=== PATIENT | female | born 1960 | race Caucasian/White ===

== ENCOUNTER 2017-11-29 15:22 | Observation (INO) | payer OTHER ==
[~2017-11-29] VITALS: Ht 167.6 cm; Wt 75.4 kg
[2017-11-29] MEDS ORDERED: LEVO88TA54 PO (15:45)
[2017-11-29] MEDS ORDERED: ASPIRIN 81 MG CHEW (CHILDREN'S ASA) PO ONE (16:00)
[2017-11-29] MEDS ORDERED: NITROGLYCERIN 0.4 MG SL TABS BTL 25'S SL PRN ×2 (16:00→19:45)
[2017-11-29 16:08] LABS: BASOPHILS % (AUTO) 0 % (0-10); EOSINOPHILS # (AUTO) 0.1 10^3/uL (0.0-0.3); EOSINOPHILS % (AUTO) 1 % (0-10); HEMATOCRIT 41 % (35-52); HEMOGLOBIN 13.7 G/DL (11.5-16.0); LYMPHOCYTES # (AUTO) 1.6 X 10^3 (1.0-4.0); LYMPHOCYTES % (AUTO) 24 % (12-44); MEAN CORPUSCULAR HEMOGLOBIN 31 PG (25-34); MEAN CORPUSCULAR HGB CONC 33 G/DL (32-36); MEAN CORPUSCULAR VOLUME 94 FL (80-99); MEAN PLATELET VOLUME 10.3 FL (7.4-10.4); MONOCYTES # (AUTO) 0.5 X 10^3 (0.0-1.0); MONOCYTES % (AUTO) 7 % (0-12); NEUTROPHILS # (AUTO) 4.4 X 10^3 (1.8-7.8); NEUTROPHILS % (AUTO) 67 % (42-75); PLATELET COUNT 271 10^3/uL (130-400); RED BLOOD COUNT 4.38 10^6/uL (4.35-5.85); RED CELL DISTRIBUTION WIDTH 13.4 % (10.0-14.5); WHITE BLOOD COUNT 6.5 10^3/uL (4.3-11.0)
[2017-11-29 16:23] LABS: ALANINE AMINOTRANSFERASE 21 U/L (0-55); ALBUMIN 4.6 GM/DL (3.2-4.5); ALKALINE PHOSPHATASE 55 U/L (40-136); BILIRUBIN,TOTAL 0.6 MG/DL (0.1-1.0); BUN/CREATININE RATIO 18; CALCIUM 9.4 MG/DL (8.5-10.1); CARBON DIOXIDE 20 MMOL/L (21-32); CHLORIDE 109 MMOL/L (98-107); CREATININE SERUM 1.02 MG/DL (0.60-1.30); GFR ESTIMATED 56; GLUCOSE 114 MG/DL (70-105); MAGNESIUM 2.2 MG/DL (1.8-2.4); POTASSIUM 3.9 MMOL/L (3.6-5.0); SODIUM 141 MMOL/L (135-145); TOTAL PROTEIN 7.3 GM/DL (6.4-8.2)
[2017-11-29 16:29] LABS: MYOGLOBIN SERUM 21.6 NG/ML (10.0-92.0); PROTHROMBIN TIME PATIENT 12.9 SEC (12.2-14.7)
--- NOTE | 2017-11-29 16:38 | Diagnostic Imaging Report ---
Indication: Intermittent chest pain for 2 days. PA and lateral chest Heart size and pulmonary vascularity are normal. Lungs are clear. There are no effusions or pneumothoraces. Impression: Negative chest. Dictated by: Dictated on workstation # [id number]
[2017-11-29 17:04] LABS: FREE T4 (FREE THYROXINE) 1.02 NG/DL (0.70-1.48)
--- NOTE | 2017-11-29 17:58 | ED Chest Pain ---
General Chief Complaint: Chest Pain Stated Complaint: CP Nursing Triage Note: ARRIVED VIA AMB TO ROOM 05. COMPLAINS OF OFF AND ON CHESTPAIN FOR A COUPLE OF DAYS. 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 HAD TO LEAVE WORK TODAY DUE TO CP AND STRESS. Nursing Sepsis Screen: No Definite Risk Source: patient Exam Limitations: no limitations History of Present Illness Date Seen by Provider: November 29, 2017 Time Seen by Provider: 15:38 Initial Comments This 56-year-old woman presents to the emergency room with complaints of intermittent chest pain for the past few days. She reports it is worse with stress, particularly stress at work. She notes significant amount of increased stress in her life recently. Pain is better with rest. She notices no change with deep breathing. She notes that her brother 4 weeks ago which is part of her stress. She also states she has had some sore throat and cough that started about 4 weeks ago. She took 10 days of Keflex and thought the symptoms improved. They now seem to be worse again. Her daughter was recently diagnosed with mycoplasma pneumonia. She reports having some headaches. She had "indigestion" 2 nights ago. She had some shortness of breath earlier today but denies shortness of breath now. She has noted some mild swelling in her legs. She rates her pain as 4/10. She describes it as a "sharp ache" in the left upper chest radiating to the left shoulder, neck, and upper back. She works as a nurse at [employer]. She notes having episodes of tachycardia that have been measured up to the 120s while at work. She has a history of Neri's thyroiditis and takes irate supplement. Allergies and Home Medications Allergies Coded Allergies: Sulfa (Sulfonamide Antibiotics) (Verified Allergy, Unknown, 11/29/17) amoxicillin (Verified Allergy, Unknown, 11/29/17) clavulanic acid (Verified Allergy, Unknown, 11/29/17) Patient Home Medication List Home Medication List Reviewed: Yes Review of Systems Constitutional: no symptoms reported EENTM: No Symptoms Reported Respiratory: See HPI Cardiovascular: See HPI Gastrointestinal: No Symptoms Reported Genitourinary: No Symptoms Reported Musculoskeletal: no symptoms reported Skin: no symptoms reported Psychiatric/Neurological: See HPI Endocrine: See HPI Hematologic/Lymphatic: No Symptoms Reported Past Qldhtqe-Wktnuo-Muoqzq Hx Past Med/Social Hx: Reviewed and Corrections made Patient Social History Alcohol Use: Denies Use Recreational Drug Use: No Smoking Status: Former Smoker Recent Foreign Travel: No Contact w/Someone Who Travel: No Recent Infectious Disease Expo: No Recent Hopitalizations: No Seasonal Allergies Seasonal Allergies: No Past Medical History Surgeries: Yes Gallbladder, Orthopedic, Tubal Ligation Respiratory: No Cardiac: Yes (history of PACs) Hypertension Neurological: No : No Genitourinary: No Gastrointestinal: Yes (diaphragmatic hernia) Hiatal Hernia Musculoskeletal: Yes Arthritis, Fibromyalgia Endocrine: Yes (HASHIMOTOS) Hypothyroidsim Cancer: No Psychosocial: No Integumentary: No Family Medical History Reviewed and Corrections made Hypertension Physical Exam Vital Signs Vital Signs - First Documented 11/29/17 15:25 Temp 98.0 Pulse 98 Resp 18 B/P (MAP) 126/96 (106) Pulse Ox 98 O2 Delivery Room Air Capillary Refill : Less Than 3 Seconds General Appearance: No Apparent Distress, WD/WN HEENT: PERRL/EOMI, Normal ENT Inspection Neck: Normal Inspection Respiratory: Chest Non Tender, Lungs Clear, Normal Breath Sounds, No Accessory Muscle Use, No Respiratory Distress Cardiovascular: No Edema, No Murmur, Normal Peripheral Pulses, Tachycardia Gastrointestinal: Normal Bowel Sounds, Non Tender, Soft Extremity: Normal Inspection, No Pedal Edema, Other (slight tenderness in the right calf) Neurologic/Psychiatric: Alert, Oriented x3, No Motor/Sensory Deficits, Normal Mood/Affect, 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 Skin: Normal Color, Warm/Dry Progress/Results/Core Measures Results/Orders Lab Results Laboratory Tests Test 11/29/17 15:30 Range/Units White Blood Count 6.5 4.3-11.0 10^3/uL Red Blood Count 4.38 4.35-5.85 10^6/uL Hemoglobin 13.7 11.5-16.0 G/DL Hematocrit 41 35-52 % Mean Corpuscular Volume 94 80-99 FL Mean Corpuscular Hemoglobin 31 25-34 PG Mean Corpuscular Hemoglobin Concent 33 32-36 G/DL Red Cell Distribution Width 13.4 10.0-14.5 % Platelet Count 271 130-400 10^3/uL Mean Platelet Volume 10.3 7.4-10.4 FL Neutrophils (%) (Auto) 67 42-75 % Lymphocytes (%) (Auto) 24 12-44 % Monocytes (%) (Auto) 7 0-12 % Eosinophils (%) (Auto) 1 0-10 % Basophils (%) (Auto) 0 0-10 % Neutrophils # (Auto) 4.4 1.8-7.8 X 10^3 Lymphocytes # (Auto) 1.6 1.0-4.0 X 10^3 Monocytes # (Auto) 0.5 0.0-1.0 X 10^3 Eosinophils # (Auto) 0.1 0.0-0.3 10^3/uL Basophils # (Auto) 0.0 0.0-0.1 10^3/uL Prothrombin Time 12.9 12.2-14.7 SEC INR Comment 1.0 0.8-1.4 Activated Partial Thromboplast Time 27 24-35 SEC D-Dimer < 0.27 0.00-0.49 UG/ML Sodium Level 141 135-145 MMOL/L Potassium Level 3.9 3.6-5.0 MMOL/L Chloride Level 109 H 98-107 MMOL/L Carbon Dioxide Level 20 L 21-32 MMOL/L Anion Gap 12 5-14 MMOL/L Blood Urea Nitrogen 18 7-18 MG/DL Creatinine 1.02 0.60-1.30 MG/DL Estimat Glomerular Filtration Rate 56 BUN/Creatinine Ratio 18 Glucose Level 114 H 70-105 MG/DL Calcium Level 9.4 8.5-10.1 MG/DL Magnesium Level 2.2 1.8-2.4 MG/DL Total Bilirubin 0.6 0.1-1.0 MG/DL Aspartate Amino Transf (AST/SGOT) 18 5-34 U/L Alanine Aminotransferase (ALT/SGPT) 21 0-55 U/L Alkaline Phosphatase 55 40-136 U/L Myoglobin 21.6 10.0-92.0 NG/ML Troponin I < 0.30 <0.30 NG/ML C-Reactive Protein High Sensitivity 0.22 0.00-0.50 MG/DL Total Protein 7.3 6.4-8.2 GM/DL Albumin 4.6 H 3.2-4.5 GM/DL Thyroid Stimulating Hormone (TSH) 0.59 0.35-4.94 UIU/ML Free Thyroxine 1.02 0.70-1.48 NG/DL My Orders Orders - MARCELLE FRIAS MD Ekg Tracing (5/30/18 15:23) Cbc With Automated Diff (11/29/17 15:56) Magnesium (11/29/17 15:56) Cardiac Profile 1 (11/29/17 15:56) Comprehensive Metabolic Panel (11/29/17 15:56) Myoglobin Serum (11/29/17 15:56) Protime With Inr (11/29/17 15:56) Partial Thromboplastin Time (11/29/17 15:56) O2 (11/29/17 15:56) Monitor-Rhythm Ecg Trace Only (11/29/17 15:56) Lipid Panel (11/30/17 06:00) Aspirin Chewable Tablet (Baby Aspirin Ch (11/29/17 16:00) Nitroglycerin 0.4 Mg Btl 25's (Nitrostat (11/29/17 16:00) Saline Lock/Iv-Start (11/29/17 15:56) Fibrin Degradation Products (11/29/17 15:56) Hs C Reactive Protein (11/29/17 15:56) Chest Pa/Lat (2 View) (11/29/17 15:56) Thyroid Stimulating Hormone (11/29/17 16:10) Free T4 (Free Thyroxine) (11/29/17 16:10) Medications Given in ED Current Medications Medications Dose Ordered Sig/Kale Route Start Time Stop Time Status Last Admin Dose Admin Aspirin 324 mg ONCE ONCE PO 11/29/17 16:00 11/29/17 16:01 DC 11/29/17 16:09 324 MG Nitroglycerin 0.4 mg UD PRN SL 11/29/17 16:00 11/29/17 16:09 0.4 MG Vital Signs/I&O 11/29/17 15:25 Temp 98.0 Pulse 98 Resp 18 B/P (MAP) 126/96 (106) Pulse Ox 98 O2 Delivery Room Air Blood Pressure Mean: 106 Progress Progress Note : Progress Note Patient was given aspirin and nitroglycerin. Nitroglycerin did resolve her pain. Pain eventually rebounded when she got up to have her x-ray performed. X -ray was unremarkable. The remainder of her workup was also unremarkable. I discussed options with the patient and suggested admission for observation and stress test in the morning. Patient is agreeable to admission. Case was reviewed with Dr. Cherry and Dr. Fagan. Dr. Fagan requested patient have a PPI given in addition to aspirin. Initial ECG Impression Date: November 29, 2017 Initial ECG Impression Time: 15:29 Initial ECG Rate: 92 Initial ECG Rhythm: S.Tach Comment Sinus tachycardia with no ST elevation or depression. No abnormal intervals or axis deviation. Diagnostic Imaging Diagonstic Imaging: Xray Plain Films/CT/US/NM/MRI: chest Comments Chest x-ray viewed by me and report reviewed. See report below: NAME: TINY JAMA [facility] REC#: [id number] PT STATUS: REG ER : 1960 PHYSICIAN: MARCELLE FRIAS MD ADMIT DATE: 11/29/17/ER Signed Date of Exam: 11/29/17 CHEST PA/LAT (2 VIEW) Indication: Intermittent chest pain for 2 days. PA and lateral chest Heart size and pulmonary vascularity are normal. Lungs are clear. There are no effusions or pneumothoraces. Impression: Negative chest. Dictated by: Dictated on workstation # [id number] Dict: 11/29/17 1633 Trans: 11/29/17 1711 Interpreted by: ELSA NAM MD Electronically signed by: ELSA NAM MD 11/29/17 1711 Departure Communication (Admissions) Time/Spoke to Admitting Phy: 17:45 Dr. Cherry Time/Spoke to Consulting Phy: 17:40 Dr. Fagan Impression Primary Impression: Chest pain Qualified Codes: R07.9 - Chest pain, unspecified Disposition: ADMITTED INPATIENT Condition: Improved Admissions Decision to Admit Reason: Admit from ER (General) Decision to Admit/Date: November 29, 2017 Time/Decision to Admit Time: 17:40 Departure-Patient Inst. Referrals: JOY GRACIA DPM (PCP) Primary Care Physician MARCELLE FRIAS MD November 29, 2017 17:58
[2017-11-29 18:40] VITALS: BP 109/79
[2017-11-29] MEDS ORDERED: [UNRECOGNIZED DRUG - OTHER] PO ×2 (19:21→23:38)
[2017-11-29] MEDS ORDERED: PANTOPRAZOLE 40 MG (PROTONIX) TAB PO NR (19:39)
[2017-11-29] MEDS ORDERED: CATHETER FLUSH 10 ML SYR IV PRN (19:45)
[2017-11-29] MEDS ORDERED: ACETAMINOPHEN 325 MG TABLET/CAPLET (TYLENOL) ONE (21:57)
[2017-11-29 21:58] LABS: CREATINE KINASE 47 U/L (29-168)
[2017-11-29] MEDS: CATHETER FLUSH 10 ML SYR IV SCH (22:02)
[2017-11-29] MEDS: ACETAMINOPHEN 325 MG TABLET/CAPLET (TYLENOL) PO PRN (22:04)
[2017-11-29] MEDS ORDERED: ZINC50TA31 PO (23:40)
[2017-11-29] MEDS ORDERED: CALC-140 PO (23:42)
[2017-11-30] VITALS: BP 105/70
[2017-11-30] MEDS ORDERED: ZINC PO (01:33)
[2017-11-30] MEDS ORDERED: CALC-140 PO (01:34)
[2017-11-30] MEDS ORDERED: MAGNESIUM PO (01:36)
[2017-11-30] MEDS ORDERED: BOSWELLIA PO (01:37)
[2017-11-30] MEDS ORDERED: TUMERIC PO (01:38)
[2017-11-30] MEDS ORDERED: B-12 PO (01:38)
[2017-11-30] MEDS ORDERED: BEE POLLEN (01:39)
[2017-11-30] MEDS ORDERED: OIL OF OREGANO PO (01:40)
[2017-11-30] MEDS ORDERED: [UNRECOGNIZED DRUG - OTHER] PO (01:40)
[2017-11-30] MEDS ORDERED: VITAMIN C PO (01:42)
[2017-11-30 04:00] VITALS: BP 97/68
[2017-11-30 04:21] LABS: CHOLESTEROL 185 MG/DL (< 200); HDL CHOLESTEROL 66 MG/DL (40-60); TRIGLYCERIDES 84 MG/DL (<150); VLDL CHOLESTEROL 17 MG/DL (5-40)
[2017-11-30] MEDS ORDERED: ALPR0.25 PO (04:38)
[2017-11-30] MEDS: CATHETER FLUSH 10 ML SYR IV SCH (05:38)
[2017-11-30] MEDS ORDERED: PANTOPRAZOLE 40 MG (PROTONIX) TAB PO SCH (07:00)
--- NOTE | 2017-11-30 07:45 | Consultation-Cardiology ---
HPI-Cardiology Cardiology Consultation Date of Consultation 11/30/17 Date of Admission Time Seen by Provider: 07:41 Indication: Chest pain HPI 56 years old lady with history of hypothyroidism, has been under significant stress recently, started having recurrent episode of chest pain described as dull achiness on the left side of her chest occasionally radiating to the back and left shoulder. Mild shortness of breath on exertion, no palpitation, no syncope, occasional diaphoresis with the chest pain. Came into the emergency room and felt better initially, continue to have waxing and waning pain. EKG showed minimal nondiagnostic changes and cardiac enzymes were negative. Denied any nausea or vomiting, has been having mild cough, no fever or chills. Home Medications & Allergies Allergies: Coded Allergies: Sulfa (Sulfonamide Antibiotics) (Verified Allergy, Unknown, 11/29/17) amoxicillin (Verified Allergy, Unknown, 11/29/17) clavulanic acid (Verified Allergy, Unknown, 11/29/17) Home Medication List Reviewed: Yes KFC-Dfwgkz-Zfszjd Hx Patient Social History Employed/Student: employed Alcohol Use: Denies Use Recreational Drug Use: No Smoking Status: Former Smoker Recent Foreign Travel: No Recent Infectious Disease Expo: No Recent Hopitalizations: No Physical Abuse Screen: No Sexual Abuse: No Past Medical History Past medical history as discussed below Family Medical History Significant Family History: Hypertension Family History: Patient reports no known family medical history. Constitutional: no symptoms reported, see HPI EENTM: see HPI, no symptoms reported Respiratory: see HPI, cough; No dyspnea on exertion, No hemoptysis, No orthopnea, No phlegm, No short of breath, No stridor, No wheezing, No other Cardiovascular: see HPI, chest pain; No edema, No Hx of Intervention, No palpitations, No syncope, No vascular heart diseas, No other Gastrointestinal: no symptoms reported, see HPI Genitourinary: no symptoms reported, see HPI Musculoskeletal: no symptoms reported, see HPI Skin: no symptoms reported, see HPI Psychiatric/Neurological: No Symptoms Reported, See HPI Reviewed Test Results Reviewed Test Results Lab Laboratory Tests Test 11/29/17 15:30 11/29/17 21:33 11/30/17 03:20 Range/Units White Blood Count 6.5 4.3-11.0 10^3/uL Red Blood Count 4.38 4.35-5.85 10^6/uL Hemoglobin 13.7 11.5-16.0 G/DL Hematocrit 41 35-52 % Mean Corpuscular Volume 94 80-99 FL Mean Corpuscular Hemoglobin 31 25-34 PG Mean Corpuscular Hemoglobin Concent 33 32-36 G/DL Red Cell Distribution Width 13.4 10.0-14.5 % Platelet Count 271 130-400 10^3/uL Mean Platelet Volume 10.3 7.4-10.4 FL Neutrophils (%) (Auto) 67 42-75 % Lymphocytes (%) (Auto) 24 12-44 % Monocytes (%) (Auto) 7 0-12 % Eosinophils (%) (Auto) 1 0-10 % Basophils (%) (Auto) 0 0-10 % Neutrophils # (Auto) 4.4 1.8-7.8 X 10^3 Lymphocytes # (Auto) 1.6 1.0-4.0 X 10^3 Monocytes # (Auto) 0.5 0.0-1.0 X 10^3 Eosinophils # (Auto) 0.1 0.0-0.3 10^3/uL Basophils # (Auto) 0.0 0.0-0.1 10^3/uL Prothrombin Time 12.9 12.2-14.7 SEC INR Comment 1.0 0.8-1.4 Activated Partial Thromboplast Time 27 24-35 SEC D-Dimer < 0.27 0.00-0.49 UG/ML Sodium Level 141 135-145 MMOL/L Potassium Level 3.9 3.6-5.0 MMOL/L Chloride Level 109 H 98-107 MMOL/L Carbon Dioxide Level 20 L 21-32 MMOL/L Anion Gap 12 5-14 MMOL/L Blood Urea Nitrogen 18 7-18 MG/DL Creatinine 1.02 0.60-1.30 MG/DL Estimat Glomerular Filtration Rate 56 BUN/Creatinine Ratio 18 Glucose Level 114 H 70-105 MG/DL Calcium Level 9.4 8.5-10.1 MG/DL Magnesium Level 2.2 1.8-2.4 MG/DL Total Bilirubin 0.6 0.1-1.0 MG/DL Aspartate Amino Transf (AST/SGOT) 18 5-34 U/L Alanine Aminotransferase (ALT/SGPT) 21 0-55 U/L Alkaline Phosphatase 55 40-136 U/L Myoglobin 21.6 10.0-92.0 NG/ML Troponin I < 0.30 < 0.30 <0.30 NG/ML C-Reactive Protein High Sensitivity 0.22 0.00-0.50 MG/DL Total Protein 7.3 6.4-8.2 GM/DL Albumin 4.6 H 3.2-4.5 GM/DL Thyroid Stimulating Hormone (TSH) 0.59 0.35-4.94 UIU/ML Free Thyroxine 1.02 0.70-1.48 NG/DL Total Creatine Kinase 47 29-168 U/L Triglycerides Level 84 <150 MG/DL Cholesterol Level 185 < 200 MG/DL LDL Cholesterol Direct 107 1-129 MG/DL VLDL Cholesterol 17 5-40 MG/DL HDL Cholesterol 66 H 40-60 MG/DL Physical Exam Vital Signs Vital Signs - First Documented 11/29/17 15:25 Temp 98.0 Pulse 98 Resp 18 B/P (MAP) 126/96 (106) Pulse Ox 98 O2 Delivery Room Air Capillary Refill : Less Than 3 Seconds General Appearance: No Apparent Distress, WD/WN Eyes: Bilateral Eye Normal Inspection, Bilateral Eye PERRL, Bilateral Eye EOMI HEENT: PERRL/EOMI, TMs Normal, Normal ENT Inspection, Pharynx Normal Neck: Full Range of Motion, Normal Inspection, Non Tender, Supple, Carotid Bruit Respiratory: Chest Non Tender, Lungs Clear, Normal Breath Sounds, No Accessory Muscle Use, No Respiratory Distress Cardiovascular: Regular Rate, Rhythm, No Edema, No Gallop, No JVD, No Murmur, Normal Peripheral Pulses Gastrointestinal: Normal Bowel Sounds, No Organomegaly, No Pulsatile Mass, Non Tender, Soft Back: Normal Inspection, No CVA Tenderness, No Vertebral Tenderness Extremity: Normal Capillary Refill, Normal Inspection, Normal Range of Motion, Non Tender, No Calf Tenderness, No Pedal Edema Neurologic/Psychiatric: Alert, Oriented x3, No Motor/Sensory Deficits, Normal Mood/Affect Skin: Normal Color, Warm/Dry Lymphatic: No Adenopathy A/P-Cardiology Admission Diagnosis Anterior chest wall pain Hypothyroidism X Hypotension Hiatal hernia Assessment/Plan Chest pain nonspecific etiology, resembling angina, has been under significant stress recently. Cardec enzymes and EKG were negative. Planning to evaluate exercise stress test today. Borderline hypotension, history of hypertension. Not taking any medication. Continue to monitor blood pressure. Hypothyroidism. Followed and managed by primary care physician History of tobaccoism, stopped smoking in the remote past. History of cholecystectomy, history of hiatal hernia Clinical Quality Measures AMI/AHF: ASA po Prior to arrival: No DVT/VTE Risk/Contraindication: Risk Factor Score Per Nursin RFS Level Per Nursing on Admit: 1=Low/No VTE PPX NAYELI ANGULO MD November 30, 2017 07:44
[2017-11-30 08:15] VITALS: BP 140/61
[2017-11-30] MEDS ORDERED: ASPIRIN E.C. 81 MG (ECOTRIN) TAB PO SCH (09:00)
[2017-11-30] MEDS: ACETAMINOPHEN 325 MG TABLET/CAPLET (TYLENOL) PO PRN (09:42)
[2017-11-30 09:43] VITALS: BP 118/43
--- NOTE | 2017-11-30 10:50 | Short Stay Summary-Hospitalist ---
History of Present Illness HPI/Chief Complaint Pt is a 56yoCF with a PMH of twin's and anxiety who presented to the ER with CC of chest pain. She states that she has had intermittent chest pain for the past several days but it worsened yesterday. It started while she was getting ready for work and then subsided but recurred while she was at work ( not exertional). She felt left sided chest pain that went up her neck and down her arm. This was associated with SOB and diaphoresis. She decided to seek evaluation at that time. She also complains of a cough that started at the beginning of the month. She was treated with Keflex and steroids but had no improvement. Just a few days ago her daughter was diagnosis with mycoplasma pneumonia. She also has been going through a lot of stress lately as her brother just unexpectedly in an accident and she had been attributing her symptoms to stress. Date Seen 11/30/17 Time Seen by Provider: 10:00 Attending Physician Jhon Cherry MD PCP Di Lala Dpm Referring Physician Date of Admission November 29, 2017 at 6:12 pm Home Medications & Allergies Home Medications Reviewed patient Home Medication Reconciliation performed by pharmacy medication reconciliations electromechanical technician and/or nursing. Patients Allergies have been reviewed. Allergies Allergies Coded Allergies Sulfa (Sulfonamide Antibiotics) (Verified Allergy, Severe, lip sweling, ) amoxicillin (Verified Adverse Reaction, Unknown, 11/30/17) vomiting clavulanic acid (Verified Adverse Reaction, Unknown, 11/30/17) vomiting Past Nidekcx-Wqkhld-Frchhi Hx Past Med/Social Hx: Reviewed Nursing Past Med/Soc Hx, Reviewed and Corrections made Patient Social History Employed/Student: employed Alcohol Use: Denies Use Recreational Drug Use: No Smoking Status: Former Smoker (social smoker ~ 10cigs/month) Former Smoker, Quit: November 30, 1995 Physical Abuse Screen: No Sexual Abuse: No Recent Foreign Travel: No Contact w/other who traveled: No Recent Hopitalizations: No Recent Infectious Disease Expo: No Seasonal Allergies Seasonal Allergies: No Past Medical History Surgeries: Gallbladder, Orthopedic, Tubal Ligation Cardiac: High Cholesterol : No Gastrointestinal: Hiatal Hernia Musculoskeletal: Arthritis, Fibromyalgia Endocrine: Hypothyroidsim Psychosocial: Anxiety Adverse Reaction to Blood Hong: No Family History Reviewed and Corrections made Patient reports no known family medical history. Heart Disease (aortic stenosis- mother), Hypertension Review of Systems Constitutional: No chills; diaphoresis; No fever EENTM: No blurred vision, No double vision, No nose congestion, No throat pain Respiratory: No cough, No dyspnea on exertion; short of breath Cardiovascular: chest pain; No edema, No Hx of Intervention; palpitations Gastrointestinal: No abdominal pain, No constipation, No diarrhea, No nausea, No vomiting Genitourinary: No dysuria, No frequency Musculoskeletal: No joint pain, No muscle pain Skin: No lesions, No rash Psychiatric/Neurological: Anxiety; Denies Headache, Denies Numbness, Denies Tingling All Other Systems Reviewed Negative Unless Noted: Yes (Negative excepted noted.) Physical Exam Physical Exam Vital Signs Vital Signs - First Documented 11/29/17 15:25 Temp 98.0 Pulse 98 Resp 18 B/P (MAP) 126/96 (106) Pulse Ox 98 O2 Delivery Room Air Capillary Refill : Less Than 3 Seconds General Appearance: No Apparent Distress, WD/WN HEENT: PERRL/EOMI, Moist Mucous Membranes Neck: Non Tender, Supple Respiratory: Lungs Clear, No Respiratory Distress Cardiovascular: Regular Rate, Rhythm, No Murmur Gastrointestinal: Normal Bowel Sounds, Non Tender, Soft Extremity: Normal Capillary Refill, No Calf Tenderness Neurologic/Psychiatric: Alert, Oriented x3, Normal Mood/Affect Skin: Normal Color, Warm/Dry Results Results/Procedures Labs Laboratory Tests 11/29/17 15:30 Patient resulted labs reviewed. Imaging: Reviewed Imaging Report Imaging Date of Exam: 11/29/17 CHEST PA/LAT (2 VIEW) Indication: Intermittent chest pain for 2 days. PA and lateral chest Heart size and pulmonary vascularity are normal. Lungs are clear. There are no effusions or pneumothoraces. Impression: Negative chest. Short Stay Diagnosis Discharge Diagnosis-Short Stay Admission Diagnosis Chest Pain Final Discharge Diagnosis Chest Pain Conclusion Plan See below Diagnosis/Problems Diagnosis/Problems (1) Chest pain Status: Acute Assessment & Plan: Concerning for cardiac origin on presentation Cardiology consulted, appreciate recs Underwent nuclear stress test and is negative Deemed safe for discharge Given persistent cough and exposure to mycoplasma will start on abx for atypical pneumonia Complete z-pack at home Advised to follow up with PCP Jessica Schreiber APRN as scheduled next week Qualifiers: Qualified Codes: R07.9 - Chest pain, unspecified Clinical Quality Measures AMI/AHF: ASA po Prior to arrival: No DVT/VTE Risk/Contraindication: Risk Factor Score Per Nursin RFS Level Per Nursing on Admit: 1=Low/No VTE PPX JHON CHERRY MD November 30, 2017 10:50
[2017-11-30] MEDS ORDERED: AZITHROMYCIN 250 MG TAB (ZITHROMAX) PO ONE (11:00)
[2017-11-30] MEDS ORDERED: hydrOXYzine (ATARAX) 10 MG TAB PO PRN (11:00)
[2017-11-30 11:31] VITALS: BP 108/76
--- NOTE | 2017-11-30 12:11 | Discharge Inst-Simple/Standard ---
Discharge Inst-Standard Patient Instructions/Follow Up Plan of Care/Instructions/FU: Please continue to take your medications. Please follow up with your PCP as scheduled next week. Activity as Tolerated: Yes Discharge Diet: No Restrictions Return to The Hospital For: Chest pain, SOB, if you feel you are getting worse. JHON VELAZQUEZ MD November 30, 2017 12:11 pm
[2017-11-30] MEDS ORDERED: AZIT250T12 PO (12:18)
[2017-11-30 13:27] VITALS: BP 108/76
--- NOTE | 2017-11-30 15:02 | STRESS TEST ---
DATE OF SERVICE: 11/30/2017 EXERCISE MYOVIEW STRESS TEST REPORT REFERRING PHYSICIAN: Dr. Sharri Cherry. Baseline heart rate is 57. Baseline blood pressure 119/78. Baseline EKG is sinus rhythm with no ischemic changes. In summary, the patient was injected with 10.77 mCi of technetium-99 Myoview and the resting images were obtained. Then, she started exercising with a baseline heart rate, blood pressure and EKG mentioned above. She was able to exercise for a total of 7 minutes on standard [place]vy protocol, achieving maximum heart rate of 148 which is 87% of maximum expected heart rate. With peak exercise level, blood pressure was 165/73. EKG was showing minimal nondiagnostic changes. During recovery, heart rate and blood pressure returned to baseline. EKG returned to baseline. The resting and stress images were reviewed and compared in the short axis, horizontal long axis, and vertical long axis views. Review of the images showed breast attenuation with typical female pattern. There is mild decreased uptake at the anteroapical segment and apex with no significant reversibility. SSS is 0. TID value 1.0. On the gated images, the left ventricle appeared to be in normal size with normal contractility. Calculated ejection fraction 65%. CONCLUSION: 1. Fair exercise tolerance, a total of seven minutes of standard [place]vy protocol, total of 8.5 METS achieving 94% of maximum expected heart rate. 2. Appropriate heart rate and blood pressure response to exercise returned to baseline during recovery. 3. Breast attenuation with typical female pattern. No significant ischemia or infarction on SPECT images. 4. Normal left ventricular size with normal contractility. Calculated ejection fraction 65%. Job ID: [id number] DocumentID: [id number] Dictated Date: 11/30/2017 12:04:16 Share Holder Date: 11/30/2017 15:01:55 Dictated By: NAYELI ANGULO MD [facility]
[2017-12-01] MEDS ORDERED: AZITHROMYCIN 250 MG TAB (ZITHROMAX) PO SCH (09:00)
== END 2017-11-30 12:20 | disposition home or self-care (01) ==
LOC: EDUNIT# 15:22 → ER 15:24 → UNDOADMOB 18:12 → ICU 18:12 → UNDOADMOB 18:35 → UNDODISOB 11-30 13:27
PROVIDERS: ADMIT Family Medicine; ATTEND Family Medicine
DX: R07.9 Chest pain, unspecified (principal); R05 Cough; E03.9 Hypothyroidism, unspecified; F41.9 Anxiety disorder, unspecified; M79.7 Fibromyalgia; E78.00 Pure hypercholesterolemia, unspecified; K44.9 Diaphragmatic hernia without obstruction or gangrene; Z87.891 Personal history of nicotine dependence; Z88.1 Allergy status to other antibiotic agents; Z88.2 Allergy status to sulfonamides
CPT/HCPCS: 36415; 71046; 78452; 80053; 80061; 82550; 83735; 83874; 84439; 84443; 84484; 85025; 85379; 85610; 85730; 86141; 93005; 93017; 93041

== ENCOUNTER → 2019-02-11 | Outpatient (CLI) | payer OTHER ==
[~2019-02-11] MED LIST: ALPR0.25 PO; AZIT250T12 PO; B-12 PO; BEE POLLEN; BOSWELLIA PO; CALC-140 PO; LEVO88TA54 PO; MAGNESIUM PO; OIL OF OREGANO PO; TUMERIC PO; VITAMIN C PO; ZINC PO; ZINC50TA58 PO; [UNRECOGNIZED DRUG - OTHER] PO; [UNRECOGNIZED DRUG - OTHER] PO
--- NOTE | 2019-02-11 18:02 | Diagnostic Imaging Report ---
INDICATION: Routine screening. COMPARISON is made with prior mammograms from 01/19/2017 and 05/01/2012. TECHNIQUE: 2D and 3D bilateral screening mammography was performed with CAD. FINDINGS: Both breasts are heterogeneously dense, limiting the sensitivity of mammography. Circumscribed rounded mass outer right breast appears to be stable and suggestive of a cyst. Circumscribed nodule retroareolar left breast also appears to be stable to perhaps slightly smaller when compared with prior exam. No new mass or malignant appearing microcalcifications are seen. Axillae are unremarkable. IMPRESSION: BI-RADS category 2. No mammographic features suspicious for malignancy are identified. ACR BI-RADS Category 2: Benign findings. Result letter will be mailed to the patient. Note: At least 10% of breast cancer is not imaged by mammography. Dictated by: Dictated on workstation # [id number]
== END ==
LOC: RAD 10:00
PROVIDERS: ATTEND Nurse Practitioner
DX: Z12.31 Encounter for screening mammogram for malignant neoplasm of breast (principal)
CPT/HCPCS: 77067

== ENCOUNTER → 2019-05-07 | Outpatient (CLI) | payer OTHER ==
--- NOTE | 2019-05-07 10:44 | Diagnostic Imaging Report ---
MRI RT UPPER EXT JOINT W/O TECHNIQUE: Multiplanar, multisequence MR imaging of the right shoulder was performed without contrast. COMPARISON: None available. INDICATION: Right shoulder pain. FINDINGS: Rotator cuff: The supraspinatus has mild tendinopathy present but is intact. Infraspinatus, subscapularis, and teres minor are normal. No rotator cuff muscle atrophy or edema. Glenoid labrum: Abnormal signal within the posterosuperior labrum suggests nondisplaced tearing. No paralabral cyst. Long head of biceps: Long head of biceps is normally positioned within the bicipital groove. The intracapsular segment is intact. Bones and cartilage: Humeral head is normal in morphology without fracture or focal osseous lesion. No glenohumeral chondromalacia. 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 Soft tissues: No glenohumeral joint effusion. No MRI findings to suggest adhesive capsulitis. There is a small amount of fluid in the subacromial/subdeltoid space, suggestive of mild bursitis. IMPRESSION: 1. Probable nondisplaced tear in the superior labrum. 2. No rotator cuff tear. 3. Mild subacromial/subdeltoid bursitis. Dictated by: Dictated on workstation # [id number]
== END ==
LOC: RAD 09:16
PROVIDERS: ATTEND Nurse Practitioner Family
DX: M25.511 Pain in right shoulder (principal)
CPT/HCPCS: 73221